=== PATIENT | female | born 1965 ===

== ENCOUNTER 2020-03-24 13:15 | Outpatient (CLI) | payer MEDICAID ==
[~2020-03-24] VITALS: Ht 157.5 cm; Wt 65.3 kg
[2020-03-24 13:39] VITALS: BP 116/67
[2020-03-24] MEDS ORDERED: MILK OF MA400 MG/51 ORAL (13:41)
[2020-03-24] MEDS ORDERED: SYNTHROID100 MCG ORAL (13:41)
[2020-03-24] MEDS ORDERED: GAS-X125 MG PO (13:41)
[2020-03-24] MEDS ORDERED: DOCUSATE SODIU100 MG ORAL (13:41)
--- NOTE | 2020-03-25 08:45 | Consultation ---
DATE OF CONSULTATION: 03/24/2020 CONSULTING PHYSICIAN: Sj Marquez MD CHIEF COMPLAINT: Abdominal pain, constipation, bloating. PAST MEDICAL HISTORY: 1. Chronic constipation. 2. IBS. 3. Hemorrhoids. 4. Diverticulosis. 5. Hypothyroidism. 6. History of H. pylori positive gastritis, status post treatment. PAST SURGICAL HISTORY: Appendectomy. MEDICATIONS: Please see medication reconciliation list. FAMILY HISTORY: Noncontributory. SOCIAL HISTORY: Patient denies any tobacco, alcohol, or other drug abuse. ALLERGIES: No known allergies. REVIEW OF SYSTEMS: Positive for GERD, constipation, history of H. pylori infection. PHYSICAL EXAMINATION: VITAL SIGNS: Temperature 98, blood pressure 110/67, pulse is 73, respirations 20. HEENT: Normocephalic, atraumatic. Sclerae anicteric. NECK: Supple. No evidence of obvious lymphadenopathy. CARDIOVASCULAR: Regular rate and rhythm. Plus S1-S2. LUNGS: Clear to auscultation bilaterally. ABDOMEN: Positive bowel sounds. Soft and nontender. No rebound. No guarding. No peritoneal sign. EXTREMITIES: No cyanosis, no clubbing, no edema. ASSESSMENT AND PLAN: This is a 54-year-old female with severe constipation, signs and symptoms suspicious for SIBO. Plan is trial of Xifaxan and Align. Also, we gave the patient sample of Trulance and a prescription for Trulance. Patient's last colonoscopy was in 2016, but patient does not have the report. Patient to come back if no improvement and bring a copy of her colonoscopy. Sj Marquez M.D. DR: ORA JOB#: [id number] CC:
== END 2020-03-24 15:15 | disposition home or self-care (01) ==
LOC: PAN 13:15
DX: R10.9 Unspecified abdominal pain (principal); K59.00 Constipation, unspecified; R14.0 Abdominal distension (gaseous); E03.9 Hypothyroidism, unspecified; Z90.89 Acquired absence of other organs; K21.9 Gastro-esophageal reflux disease without esophagitis